=== PATIENT | male | born 1975 | race Two or more races ===

== ENCOUNTER → 2017-07-31 | Emergency (ER) | payer OTHER ==
[~2017-07-31] VITALS: Ht 170.2 cm; Wt 65.8 kg
== END | disposition home or self-care (01) ==
LOC: ER 08:50
DX: N44.8 Other noninflammatory disorders of the testis (principal); R21 Rash and other nonspecific skin eruption

== ENCOUNTER 2021-10-13 15:34 | Emergency (ER) | payer OTHER ==
[~2021-10-13] VITALS: Ht 170.2 cm; Wt 68.0 kg
[~2021-10-13 15:34] MED LIST: CETIRIZINE1 MG/1 ML PO; MEDROLPACK PO; MONTELUKAST SOD10 MG PO
[2021-10-13] MEDS ORDERED: ORPHENADRINE C100 MG PO (17:22)
[2021-10-13] MEDS ORDERED: EC-NAPROSYN375 MG PO (17:22)
== END 2021-10-13 18:48 | disposition home or self-care (01) ==
LOC: ER 15:34
DX: G56.02 Carpal tunnel syndrome, left upper limb (principal); Z88.1 Allergy status to other antibiotic agents; Z91.013 Allergy to seafood

== ENCOUNTER → 2022-03-27 | Emergency (ER) | payer OTHER ==
[~2022-03-27] VITALS: Ht 170.2 cm; Wt 67.1 kg
[~2022-03-27] MED LIST changes: +EC-NAPROSYN375 MG PO; +KETO10TA2 PO; +NAPROXEN375 MG PO; +NORFLEX100MG PO; +ORPHENADRINE C100 MG PO
== END | disposition home or self-care (01) ==
LOC: ER 07:09
DX: M54.2 Cervicalgia (principal)

== ENCOUNTER 2022-12-09 09:02 | Outpatient (CLI) | payer OTHER | END 2022-12-09 09:03 | disposition home or self-care (01) | LOC: LAB 09:02 | DX: R80.9 Proteinuria, unspecified (principal); E78.5 Hyperlipidemia, unspecified; R79.0 Abnormal level of blood mineral; R31.9 Hematuria, unspecified; R19.2 Visible peristalsis ==

== ENCOUNTER 2023-01-06 09:46 | Outpatient (CLI) | payer OTHER | END 2023-01-06 09:49 | disposition home or self-care (01) | LOC: LAB 09:46 | PROVIDERS: ATTEND Internal Medicine | DX: I10 Essential (primary) hypertension (principal); R06.02 Shortness of breath; R07.9 Chest pain, unspecified ==

== ENCOUNTER 2023-01-16 08:14 | Emergency (ER) | payer OTHER ==
[~2023-01-16] VITALS: Ht 170.2 cm; Wt 67.1 kg
[2023-01-16] MEDS ORDERED: KETO10TA2 PO (09:28)
[2023-01-16] MEDS ORDERED: ZANAFLEX2 M1 PO (09:28)
== END 2023-01-16 09:50 | disposition home or self-care (01) ==
LOC: ER 08:14
DX: M51.26 Other intervertebral disc displacement, lumbar region (principal); Z91.013 Allergy to seafood; Z88.8 Allergy status to other drugs, medicaments and biological substances

== ENCOUNTER → 2023-06-13 08:02 | Outpatient (CLI) | payer OTHER ==
[~2023-06-13 08:02] MED LIST changes: +ZANAFLEX2 M1 PO
[2023-06-13 09:02] LABS: HEMATOCRIT 39.8 % (39.0-48.0); HEMOGLOBIN 14.2 g/dL (13-16.00); MEAN CORPUSCULAR HEMOGLOBIN 30.4 pg (27.00-32.0); MEAN CORPUSCULAR HGB CONC 35.7 g/dl (32.0-36.0); PLATELET COUNT 148 K/uL (150-450); RED BLOOD COUNT 4.68 M/uL (4.00-6.00); RED CELL DISTRIBUTION WIDTH 13.1 % (11.5-14.5)
[2023-06-13 09:26] LABS: MYCOPLASMA PNEUMONIAE IGM NON REACTIVE (NO REACTIVE)
== END | disposition home or self-care (01) ==
LOC: LAB 08:02
PROVIDERS: ATTEND General Practice
DX: J11.89 Influenza due to unidentified influenza virus with other manifestations (principal); J06.9 Acute upper respiratory infection, unspecified; Z20.822 Contact with and (suspected) exposure to COVID-19; Z88.1 Allergy status to other antibiotic agents; Z91.013 Allergy to seafood

== ENCOUNTER 2023-06-23 08:47 | Outpatient (CLI) | payer OTHER ==
[2023-06-23 09:38] LABS: URINE APPEARANCE Clear; URINE BILIRRUBIN Negative (NEGATIVE); URINE BLOOD Negative; URINE COLOR Yellow; URINE GLUCOSE Negative (NEGATIVE); URINE LEUKOCYTE Negative; URINE NITRATE Negative; URINE PROTEIN Negative (NEGATIVE)
[2023-06-23 09:40] LABS: HEMATOCRIT 40.2 % (39.0-48.0); HEMOGLOBIN 14.1 g/dL (13-16.00); MEAN CELL VOLUME 85.1 fL (80.0-100.00); MEAN CORPUSCULAR HEMOGLOBIN 29.8 pg (27.00-32.0); PLATELET COUNT 152 K/uL (150-450); RED BLOOD COUNT 4.72 M/uL (4.00-6.00); RED CELL DISTRIBUTION WIDTH 13.2 % (11.5-14.5)
[2023-06-23 09:46] LABS: URINE BACTERIA 8.8 uL (0.0-1933); URINE WBC 3.2 uL (0.0-23.2)
[2023-06-23 09:55] LABS: URINE EPITHELIAL CELLS 0.7 uL (0.0-38.8)
[2023-06-23 10:08] LABS: BILIRUBIN TOTAL 1.18 mg/dL (0.3-1.2); CALCIUM 9.1 mg/dL (8.5-10.1); CHOL HDL RATIO 2.7 (0-5.0); CREATININE SERUM 1.08 mg/dL (0.70-1.30); GFR 72.67; PHOSPHOROUS 3.4 mg/dL (2.5-4.9); POTASSIUM 3.86 mEq/L (3.5-5.1); URIC ACID 4.3 mg/dL (3.5-8.5)
== END 2023-06-23 08:48 | disposition home or self-care (01) ==
LOC: LAB 08:47
PROVIDERS: ATTEND Internal Medicine
DX: I10 Essential (primary) hypertension (principal); R06.02 Shortness of breath; R07.9 Chest pain, unspecified

== ENCOUNTER → 2023-12-22 10:05 | Outpatient (CLI) | payer OTHER ==
[2023-12-22 11:25] LABS: ALBUMIN 4.3 gm/dL (3.4-5.0); BILIRUBIN TOTAL 1.15 mg/dL (0.3-1.2); BILIRUBIN,CONJUGATED 0.3 mg/dL (0.0-0.2); BILIRUBIN,UNCONJUGATED 0.85 mg/dL (0.0-0.6); TOTAL PROTEIN 7.5 gm/dL (6.4-8.2)
== END | disposition home or self-care (01) ==
LOC: LAB 10:05
PROVIDERS: ATTEND Podiatrist Foot Surgery
DX: K75.9 Inflammatory liver disease, unspecified (principal)

== ENCOUNTER 2024-01-30 07:22 | Emergency (ER) | payer OTHER ==
[~2024-01-30] VITALS: Ht 170.2 cm; Wt 65.8 kg
[2024-01-30] MEDS ORDERED: FAMOtidine 10 MG/ML (4ML VIAL) IV STA (09:04)
[2024-01-30] MEDS ORDERED: FAMOTIDINE/PF 20 MG/2 ML VIAL ONE (09:09)
[2024-01-30 09:15] LABS: MEAN CELL VOLUME 86.4 fL (80.0-100.00); MEAN CORPUSCULAR HEMOGLOBIN 30.8 pg (27.00-32.0); MEAN CORPUSCULAR HGB CONC 35.7 g/dl (32.0-36.0); PLATELET COUNT 151 K/uL (150-450); RED BLOOD COUNT 4.86 M/uL (4.00-6.00); RED CELL DISTRIBUTION WIDTH 13.1 % (11.5-14.5)
[2024-01-30 09:43] LABS: URINE APPEARANCE Clear; URINE BILIRRUBIN Negative (NEGATIVE); URINE BLOOD Negative; URINE COLOR Yellow; URINE GLUCOSE Negative (NEGATIVE); URINE KETONE Negative (NEGATIVE); URINE LEUKOCYTE Negative; URINE NITRATE Negative; URINE PROTEIN Negative (NEGATIVE)
[2024-01-30 09:59] LABS: URINE BACTERIA 2.5 uL (0.0-1933); URINE RBC 0.3 uL (0.0-20.8); URINE WBC 0.1 uL (0.0-23.2)
[2024-01-30 10:08] LABS: ALBUMIN 4.2 gm/dL (3.4-5.0); BILIRUBIN TOTAL 1.17 mg/dL (0.3-1.2); BILIRUBIN,CONJUGATED 0.25 mg/dL (0.0-0.2); BILIRUBIN,UNCONJUGATED 0.92 mg/dL (0.0-0.6); CALCIUM 9.3 mg/dL (8.5-10.1); CREATININE SERUM 1.1 mg/dL (0.70-1.30); GFR 70.85; POTASSIUM 4.14 mEq/L (3.5-5.1)
== END 2024-01-30 12:41 | disposition home or self-care (01) ==
LOC: ER 07:24
PROVIDERS: General Practice
DX: R10.9 Unspecified abdominal pain (principal); Z91.013 Allergy to seafood; Z88.8 Allergy status to other drugs, medicaments and biological substances